=== PATIENT | male | born 1950 | race Caucasian/White ===

== ENCOUNTER → 2016-06-05 | Outpatient (CLI) | payer MEDICARE, OTHER ==
[~2016-06-05] MED LIST: ALBU8.5H INH; AMLO5TAB2 PO; ATOR10TA64 PO; DOXA2TAB2 PO; DOXA4TAB2 PO; LISI1TAB9 PO; METO-277 PO
--- NOTE | 2016-06-05 09:16 | DI ---
Indication: ITS.REASON: C64.2 Malignant neoplasm of left kidney, except renal pelvis PROCEDURE: US RENAL: Encounter: Subsequent Comparison: Renal ultrasound dated October 25, [address] dated November 20, 2014 Technique: Grayscale and color Doppler sonographic imaging of both kidneys was performed. FINDINGS: Left kidney is surgically absent. No mass in the left nephrectomy bed. No evidence for collecting system dilatation, contour deforming mass, nephrolithiasis, or abnormal perinephric fluid collection. The right kidney measures 12.4 cm in length. IMPRESSION: Stable normal appearance of the right kidney. .
== END ==
LOC: IMA 08:05
PROVIDERS: ATTEND Specialist
DX: C64.2 Malignant neoplasm of left kidney, except renal pelvis (principal)

== ENCOUNTER 2017-07-02 14:03 | Observation (INO) ==
--- OUTSIDE RECORDS SUMMARY | 2017-07-02 14:31 | External Medical Summary | Continuity of Care Document ---
:1950 Author Organization Via [facility] Allergies Active Description Code Type Severity Reaction Onset Reported/ Identified Relationship Clinical to Patient Status Yes ADVIL 10425 Drug N/A N/A 16175 Aller 2 gy Yes PENICILLIN Drug N/A N/A Aller gy Yes Lecithin soy Aller Unknown N/A 06/06/2010 gy Yes naproxen Aller M SWELLING, 06/06/2010 gy RASH Yes Penicillins Penic Aller Unknown N/A 06/06/2010 illin gy s Yes Salicylates napro Aller M SWELLING, 06/06/2010 xen gy RASH Yes soy Aller Unknown N/A 06/06/2010 gy Yes ibuprofen NKMA N/A N/A 07/17/2013 Yes penicillin NKMA N/A N/A 07/17/2013 Yes ibuprofen NKMA N/A N/A 08/17/2016 Yes penicillin NKMA N/A N/A 08/17/2016 Medications Medication Packaging Start Stop Route Dosage Sig Date Date 2 puffs Inhalation 2 budesonide-formo 4 puffs, terol(Symbicort Inhalation, BID, 160 mcg-4.5 6 g, 0 Refill(s) mcg/inh inhalation aerosol) 1 tabs 10/14/19 Oral 20 mg 20 omeprazole(omepr 4 17 mg=1 tabs, Oral, azole 20 mg oral Daily, 0 delayed release Refill(s) tablet) 2 tabs Oral 2 lisinopril-hydro 4 tabs, Oral, CHLOROthiazide(l Daily, 90 tabs, isinopril-hydroc 0 Refill(s) hlorothiazide 10 mg-12.5 mg oral tablet) 1 tabs 05/13/19 Oral 20 mg 1 nebivolol(Bystol 4 15 tabs, Oral, ic 20 mg oral Daily tablet) 1 tabs 03/09/20 Oral 5 mg 1 amLODIPine(amLOD 4 14 tabs, Oral, IPine 5 mg oral Daily, 90 tabs tablet) 1 tabs Oral 10 mg 10 atorvastatin(abisai 4 mg=1 tabs, Oral, rvastatin 10 mg Daily, 90 tabs, oral tablet) 0 Refill(s) 1 tabs Oral 2 mg 2 doxazosin(doxazo 4 mg=1 tabs, Oral, sin 2 mg oral Daily, 90 tabs, tablet) 0 Refill(s) 2 puffs 02/03/20 Inhalation 2 albuterol(Ventol 4 14 puffs, in HFA 90 Inhalation, QID, mcg/inh 8 g, PRN: as inhalation needed for aerosol) wheezing 2 tabs 09/30/19 Oral 20 mg 20 nebivolol(Bystol 5 17 mg=2 tabs, Oral, ic 10 mg oral Daily, 60 tabs, tablet) 0 Refill(s) ORAL [id number] 5 daily 1,000 mL 12/04/19 IV 20 Lactated Ringers 5 15 mL/hr, IV Injection(Lactat ed Ringers Injection 1,000 mL) 1 tabs 12/05/19 Oral 10 mg 10 atorvastatin(abisai 5 15 mg=1 tabs, Oral, rvastatin) Bedtime (once a day) 1 tabs 12/05/19 Oral 5 mg 5 amLODIPine(Norva 5 15 mg=1 tabs, Oral, sc) Daily 2 puffs 12/05/19 Inhalation 2 budesonide-formo 5 15 puffs, terol(Symbicort Inhalation, BID 160 mcg-4.5 mcg/inh inhalation aerosol) 2 tabs 12/05/19 Oral 20 mg 20 nebivolol(Bystol 5 15 mg=2 tabs, Oral, ic) Daily 2 tabs 12/05/19 Oral 2 lisinopril-hydro 5 15 tabs, Oral, chlorothiazide(l Daily isinopril-hydroc hlorothiazide 10 mg-12.5 mg oral tablet) 1 tabs 12/05/19 Oral 40 mg 40 pantoprazole(Pro 5 15 mg=1 tabs, Oral, tonix) Daily 1 tabs 12/05/19 Oral 81 mg 81 aspirin(aspirin) 5 15 mg=1 tabs, Oral, Daily 2 mL 12/05/19 IV Push 10 mg 10 metoclopramide(R 5 15 mg=2 mL, IV eglan) Push, q6hr, PRN: Nausea or Vomiting 2 tabs 12/05/19 Oral 2 HYDROcodone-acet 5 15 tabs, Oral, aminophen([place] q4hr, PRN: Pain 7.5 mg-325 mg Moderate (4-6) oral tablet) 2 mL 12/05/19 IV Push 4 mg 4 morphine(morphin 5 15 mg=2 mL, IV e) Push, q1hr, PRN: Pain Severe (7-10) 2 tabs 12/05/19 Oral 650 mg 650 acetaminophen(ac 5 15 mg=2 tabs, Oral, etaminophen) q4hr, PRN: Pain Mild (1-3) 0.5 mL 12/04/19 NEB 2.5 mg 2.5 albuterol(albute 5 15 mg=0.5 mL, NEB, rol 5 mg/mL Once (0.5%) inhalation solution) 1 tabs 10/14/19 Oral 10 mg 10 amLODIPine(amLOD 7 17 mg=1 tabs, Oral, IPine 10 mg oral Daily, 0 tablet) Refill(s) 1 drops Eye-Both 1 cycloSPORINE 7 drops, Eye-Both, ophthalmic(Resta q12hr, 0 sis) Refill(s) 125 mcg 125 levothyroxine(le 7 mcg, Daily, 0 vothyroxine) Refill(s) 10/13/19 See multivitamin 7 17 Instructions, with Oral Daily, 0 minerals(PreserV Refill(s) ision) 1 tabs 10/14/19 Oral 200 mg 200 labetalol(labeta 7 17 mg=1 tabs, Oral, lol 200 mg oral BID, 0 Refill(s) tablet) 1,000 mL 10/13/19 IV 20 Lactated Ringers 7 17 mL/hr, IV Injection(Lactat ed Ringers Injection 1,000 mL) 1 tabs 10/14/19 Oral 10 mg 10 amLODIPine(amLOD 7 17 mg=1 tabs, Oral, IPine) Daily 2 puffs 10/13/19 Inhalation 180 mcg 180 albuterol(albute 7 17 mcg=2 puffs, rol CFC free 90 Inhalation, mcg/inh q4hr, PRN: inhalation Bronchospasms aerosol) 1 tabs 10/14/19 Oral 81 mg 81 aspirin(aspirin) 7 17 mg=1 tabs, Oral, Daily 2 tabs 10/14/19 Oral 200 mg 200 labetalol(labeta 7 17 mg=2 tabs, Oral, lol) BID 1 tabs 10/14/19 Oral 40 mg 40 pantoprazole(Pro 7 17 mg=1 tabs, Oral, tonix) Daily 2 puffs 10/13/19 Inhalation 2 budesonide-formo 7 17 puffs, terol(Symbicort Inhalation, BID 160 mcg-4.5 mcg/inh inhalation aerosol) 2 mL 10/14/19 IV Push 10 mg 10 metoclopramide(R 7 17 mg=2 mL, IV eglan) Push, q6hr, PRN: Nausea or Vomiting 1 tabs 10/14/19 Oral 1 HYDROcodone-acet 7 17 tabs, Oral, aminophen([place] q4hr, PRN: Pain 7.5 mg-325 mg Moderate (4-6) oral tablet) 1 mL 10/14/19 IV Push 0.4 mg 0.4 nalOXone(Narcan) 7 17 mg=1 mL, IV Push, Once, PRN: Sedation 2 mL 10/14/19 IV Push 4 mg 4 morphine(morphin 7 17 mg=2 mL, IV e) Push, q1hr, PRN: Pain Severe (7-10) 2 puffs 10/14/19 Inhalation 2 fluticasone-salm 7 17 puffs, eterol(Advair Inhalation, BID HFA 115 mcg-21 mcg/inh inhalation aerosol) Problems Date Dx Attending Type Code Diagnosis Diagnosed By Coded 12/09/2014 Oskar, Reason 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 12/09/2014 Oskar, Final 250.00 Diabetes mellitus Arik Chavez without mention of complication, type II or unspecified t 12/09/2014 Oskar, Final 403.90 Hypertensive Arik Chavez chronic kidney disease, unspecified, with chronic kidney disea 12/09/2014 Oskar, Final 493.20 Chronic Arik Chavez obstructive asthma, unspecified 12/09/2014 Oskar, Final 585.2 Chronic kidney Arik Chavez disease, Stage II (mild) 12/09/2014 Oskar, Final 599.71 Gross hematuria Arik Chavez 12/09/2014 Oskar, Final 600.00 Hypertrophy Arik Chavez (benign) of prostate without urinary obstruction and other lowe 12/09/2014 Oskar, Final V10.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 11/30/2015 Oskar, Final Z85.51 Personal history Arik Chavez of malignant neoplasm of bladder 05/03/2016 Oskar, Final Z85.51 Personal history Arik Chavez of malignant neoplasm of bladder 08/29/2016 SANTOSH ARAUZ DO K06.8 Other specified C disorders of gingiva and edentulous alveolar ridge 08/29/2016 SANTOSH ARAUZ DO K08.89 Other specified C disorders of teeth and supporting structures 08/29/2016 SANTOSH ARAUZ DO Z98.818 Other dental C procedure status 08/29/2016 K06.8 Other specified SANTOSH ARAUZ DO disorders of C gingiva and edentulous alveolar ridge 08/29/2016 K08.89 Other specified SANTOSH ARAUZ DO disorders of teeth C and supporting structures 08/29/2016 Z98.818 Other dental SANTOSH ARAUZ DO procedure status C 09/29/2016 Oskar, Final Z85.51 Personal history Arik Chavez of malignant neoplasm of bladder 10/16/2016 Oskar, Final C67.8 Malignant neoplasm Arik Chavez of overlapping sites of bladder 10/16/2016 Oskar, Final 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 10/16/2016 Oskar, Reason 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 10/16/2016 Oskar, Final E03.9 Hypothyroidism, Arik Chavez unspecified 10/16/2016 Oskar, Final 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 10/16/2016 Oskar, Final E78.5 Hyperlipidemia, Arik Chavez unspecified 10/16/2016 Oskar, Final I12.9 Hypertensive Arik Chavez chronic kidney disease with stage 1 through stage 4 chronic ki 10/16/2016 Oskar, Final K21.9 Gastro-esophageal Arik Chavez reflux disease without esophagitis 10/16/2016 Oskar, Final N18.2 Chronic kidney Arik Chavez disease, stage 2 (mild) 10/16/2016 Oskar, Final N40.0 Benign prostatic Arik Chavez hyperplasia without lower urinary tract symptoms 10/16/2016 Oskar, Final 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.82 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 10/16/2016 Oskar, Final Z79.84 senior care Arik Chavez (current) use of oral hypoglycemic drugs 10/16/2016 Oskar, Final Z79.899 Other longterm Arik Chavez (current) drug therapy 10/16/2016 Oskar, Final Z85.51 Personal history Arik Chavez of malignant neoplasm of bladder 10/16/2016 Oskar, Final Z85.528 Personal history Arik Chavez of other malignant neoplasm of kidney 10/16/2016 Oskar, Final Z87.440 Personal history Arik Chavez of urinary (tract) infections 10/16/2016 Oskar, Final Z87.891 Personal history Arik Chavez of nicotine dependence 10/16/2016 Oskar, Final Z90.5 Acquired absence Arik Chavez of kidney 10/23/2016 River Castellanos Final C67.9 Malignant neoplasm B of bladder, unspecified 01/25/2017 River Castellanos Final C67.9 Malignant neoplasm B of bladder, unspecified 04/26/2017 River Castellanos Final 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 92607 Urinalysis, by 11/30/2015 dip stick or tablet reagent for bilirubin, glucose, hemoglobin, ketones, leukocytes, nitrite, pH, protein, specific gravity, urobilinogen, any number of these constituents; [place] w [id number] 05/03/2016 Cystourethroscopy (separate procedure).. 33462 Urinalysis, by 05/03/2016 dip stick or tablet reagent for bilirubin, glucose, hemoglobin, ketones, leukocytes, nitrite, pH, protein, specific gravity, urobilinogen, any number of these [place]; [place] w [id number] 09/29/2016 Cystourethroscopy (separate procedure).. 41565 Urinalysis, by 09/29/2016 dip stick or tablet reagent for bilirubin, glucose, hemoglobin, ketones, leukocytes, nitrite, pH, protein, specific gravity, urobilinogen, any number of these constituents; [place] w [address] 10/12/2016 Cystourethroscopy, with fulguration (including cryosurgery or laser surgery 85634 Office or other 10/23/2016 outpatient visit for the evaluation and management of an established patient, which requires at least 2 of these 3 cronin components: A detailed history; A detailed examination; Medical d 10314 01/25/2017 Cystourethroscopy (separate procedure).. 13064 Urinalysis, by 01/25/2017 dip stick or tablet reagent for bilirubin, glucose, hemoglobin, ketones, leukocytes, nitrite, pH, protein, specific gravity, urobilinogen, any number of these constituents; [place] w [address] Office or other 01/25/2017 outpatient visit for the evaluation and management of an established patient, which requires at least 2 of these 3 cronin components: An expanded problem focused history; An expanded prob 78747 Cytopathology, 04/27/2017 selective cellular enhancement technique with interpretation (eg, liquid based slide preparation method), except cervical or vaginal.. Results Test Result Range CBC With Platelet No Differential - 10/12/16 05:26 HCT 39.8 % 42.0-52.0 HGB 13.7 g/dL 14.0-18.0 MCH 29.2 pg 27.0-32.0 MCHC 34.4 g/dL 32.0-36.0 MCV 84.9 fL 82.0-99.0 MPV 10.7 fL 9.4-12.3 Platelet Count 247 K/uL 150-400 RBC 4.69 10*6/uL 4.60-6.20 RDW 15.1 % 11.5-14.5 WBC 8.0 K/uL 4.8-10.8 Comprehensive Metabolic Panel (CMP) - 10/12/16 05:26 Albumin 3.8 g/dL 3.5-4.8 Alkaline Phosphatase 145 U/L 26-104 ALT (SGPT) 37 U/L 17-63 Anion Gap 8 mEq/L 3-20 AST (SGOT) 27 U/L 15-41 Bilirubin Total 0.6 mg/dL 0.2-1.2 BUN 21 mg/dL 4-20 Calcium 8.8 mg/dL 8.6-10.0 Chloride 104 mEq/L 99-109 CO2 22 mEq/L 22-32 Creatinine 1.74 mg/dL 0.64-1.27 Globulin 2.8 g/dL 1.9-4.3 Glucose 104 mg/dL 70-100 Potassium 4.0 mEq/L 3.6-5.1 Protein 6.6 g/dL 6.1-7.9 Sodium 134 mEq/L 136-144 eGFR - 10/12/16 05:26 eGFR 39 mL/min >60 CBC With Platelet No Differential - 10/12/16 05:26 HCT 39.8 % 42.0-52.0 HGB 13.7 g/dL 14.0-18.0 MCH 29.2 pg 27.0-32.0 MCHC 34.4 g/dL 32.0-36.0 MCV 84.9 fL 82.0-99.0 MPV 10.7 fL 9.4-12.3 Platelet Count 247 K/uL 150-400 RBC 4.69 10*6/uL 4.60-6.20 RDW 15.1 % 11.5-14.5 WBC 8.0 K/uL 4.8-10.8 Comprehensive Metabolic Panel (CMP) - 10/12/16 05:26 Albumin 3.8 g/dL 3.5-4.8 Alkaline Phosphatase 145 U/L 26-104 ALT (SGPT) 37 U/L 17-63 Anion Gap 8 mEq/L 3-20 AST (SGOT) 27 U/L 15-41 Bilirubin Total 0.6 mg/dL 0.2-1.2 BUN 21 mg/dL 4-20 Calcium 8.8 mg/dL 8.6-10.0 Chloride 104 mEq/L 99-109 CO2 22 mEq/L 22-32 Creatinine 1.74 mg/dL 0.64-1.27 Globulin 2.8 g/dL 1.9-4.3 Glucose 104 mg/dL 70-100 Potassium 4.0 mEq/L 3.6-5.1 Protein 6.6 g/dL 6.1-7.9 Sodium 134 mEq/L 136-144 eGFR - 10/12/16 05:26 eGFR 39 mL/min >60 Glucose NPT - 10/12/16 05:33 Glucose NPT 101 mg/dL 70-100 Glucose NPT - 10/12/16 05:33 Glucose NPT 101 mg/dL 70-100 Glucose NPT - 10/12/16 07:54 Glucose NPT 98 mg/dL 70-100 Glucose NPT - 10/12/16 07:54 Glucose NPT 98 mg/dL 70-100 Encounters ACCT No. Visit Discharge Status Pt. Type Provider Facility Loc./Unit Complaint Date/Time [id number] 01/10/2013 01/10/2013 CLS Outpatient 09:38:00 23:59:59 [id number] 10/12/2016 10/13/2016 DIS Outpatient Oskar Via [facility] J7W urethral 67 05:06:00 09:35:00 , [facility] on Avni [id number] 12/03/2014 12/04/2014 DIS Outpatient Oskar Via [facility] J5W tumor of 45 05:13:00 10:38:00 , [facility] on Avni [id number] 10/13/2016 Document 1712 05:17:12 Registrati on [id number] 09/30/2016 Document 1541 05:15:41 Registrati on [id number] 01/06/2015 Document 5057 13:50:57 Registrati on [id number] 01/06/2015 Document 2128 11:21:28 Registrati on [id number] 01/06/2015 Document 4441 10:44:41 Registrati on [id number] 01/06/2015 Document 2135 10:21:35 Registrati on [id number] 10/23/2014 10/23/2014 DIS Outpatient [id number] 11:32:52 11:32:55 52 [id number] 10/22/2014 10/22/2014 CLS Outpatient [id number] 10:10:00 23:59:59 00 [id number] 10/22/2014 10/22/2014 CLS Outpatient [id number] 09:01:55 23:59:59 55 [id number] 10/22/2014 10/22/2014 DIS Outpatient [id number] 10:58:51 10:58:52 51 [id number] 10/22/2014 10/22/2014 DIS Outpatient [id number] 08:47:36 08:47:36 36 [id number] 10/20/2014 10/20/2014 CLS Outpatient [id number] 08:32:53 23:59:59 53 [id number] 10/13/2014 10/13/2014 CLS Outpatient [id number] 10:36:52 23:59:59 52 [id number] 10/13/2014 10/13/2014 CLS Outpatient [id number] 10:35:56 23:59:59 56 [id number] 10/13/2014 10/13/2014 DIS Outpatient [id number] 10:36:54 10:36:55 54 [id number] 07/08/2014 07/08/2014 DIS Outpatient [id number] 13:07:42 13:07:42 42 [id number] 07/08/2014 07/08/2014 DIS Outpatient [id number] 10:30:10 10:30:11 10 [id number] 07/06/2014 07/06/2014 CLS Outpatient [id number] 12:50:07 23:59:59 07 [id number] 07/06/2014 07/06/2014 CLS Outpatient [id number] 12:29:55 23:59:59 55 [id number] 07/06/2014 07/06/2014 CLS Outpatient [id number] 11:13:40 23:59:59 40 [id number] 07/06/2014 07/06/2014 CLS Outpatient [id number] 10:20:24 23:59:59 24 [id number] 07/06/2014 07/06/2014 CLS Outpatient [id number] 10:19:04 23:59:59 04 [id number] 07/06/2014 07/06/2014 DIS Outpatient [id number] 13:06:41 13:06:41 41 [id number] 07/06/2014 07/06/2014 DIS Outpatient [id number] 12:50:06 12:50:06 06 [id number] 07/06/2014 07/06/2014 DIS Outpatient [id number] 12:50:04 12:50:05 04 [id number] 07/06/2014 07/06/2014 DIS Outpatient [id number] 12:50:01 12:50:02 01 [id number] 07/06/2014 07/06/2014 DIS Outpatient [id number] 12:16:17 12:16:19 17 [id number] 07/06/2014 07/06/2014 DIS Outpatient [id number] 10:22:05 10:22:05 05 [id number] 07/06/2014 07/06/2014 DIS Outpatient [id number] 10:21:38 10:21:41 38 [id number] 07/06/2014 07/06/2014 DIS Outpatient [id number] 10:20:53 10:20:57 53 [id number] 07/06/2014 07/06/2014 DIS Outpatient [id number] 10:20:09 10:20:13 09 [id number] 07/06/2014 07/06/2014 DIS Outpatient [id number] 10:19:19 10:19:22 19 [id number] 04/27/2014 04/27/2014 CLS Outpatient [id number] 14:13:27 23:59:59 27 [id number] 04/27/2014 04/27/2014 DIS Outpatient [id number] 14:18:48 14:18:48 48 [id number] 04/27/2014 04/27/2014 DIS Outpatient [id number] 14:13:26 14:13:26 26 [id number] 10/23/2014 Document [id number] 11:13:26 Registrati 26 on [id number] 10/22/2014 Document [id number] 16:16:10 Registrati 10 on [id number] 10/22/2014 Document [id number] 13:51:29 Registrati 29 on [id number] 10/22/2014 Document [id number] 08:58:00 Registrati on [id number] 10/22/2014 Document 5727 08:57:27 Registrati on [id number] 07/06/2014 Document 0501 12:05:01 Registrati on [id number] 07/06/2014 Document 0448 12:04:48 Registrati on [id number] 07/06/2014 Document 0430 12:04:30 Registrati on [id number] 07/06/2014 Document 0427 12:04:27 Registrati on [id number] 07/06/2014 Document 0424 12:04:24 Registrati on [id number] 07/06/2014 Document 0421 12:04:21 Registrati on [id number] 07/06/2014 Document 0417 12:04:17 Registrati on [id number] 07/06/2014 Document 0412 12:04:12 Registrati on [id number] 07/06/2014 Document 0404 12:04:04 Registrati on [id number] 07/06/2014 Document 0401 12:04:01 Registrati on [id number] 07/06/2014 Document 0356 12:03:56 Registrati on [id number] 07/06/2014 Document 0351 12:03:51 Registrati on [id number] 07/06/2014 Document 0346 12:03:46 Registrati on [id number] 07/06/2014 Document 0224 12:02:24 Registrati on [id number] 07/06/2014 Document 5913 11:59:13 Registrati on [id number] 07/06/2014 Document 5904 11:59:04 Registrati on [id number] 07/06/2014 Document 5838 11:58:38 Registrati on [id number] 07/06/2014 Document 5727 11:57:27 Registrati on [id number] 07/06/2014 Document [id number] 11:02:00 Registrati on [id number] 07/06/2014 Document [id number] 11:01:00 Registrati on [id number] 08/29/2016 08/29/2016 DIS Emergency ARAPAHOE DO, ED 14 19:53:00 21:15:00 SANTOSH Torres [id number] 06/05/2016 06/05/2016 CLS Outpatient JEFFREY Ball BARBARA 50 08:05:00 23:59:59 MD [facility] [id number] 08/29/2016 Document 75 19:53:00 Registrati on [id number] 08/10/2015 Document 83 11:01:00 Registrati on [id number] 10/12/2016 10/13/2016 DIS Outpatient Oskar Via [facility] J7W urethral 65 05:06:00 09:35:00 , [facility] on [address] [id number] 12/03/2014 12/04/2014 DIS Outpatient Oskar Via [facility] J5W tumor of 45 05:13:00 10:38:00 , [facility] on [place] [id number] 10/13/2016 Document 1712 05:17:12 Registrati on [id number] 09/30/2016 Document 1541 05:15:41 Registrati on [id number] 01/06/2015 Document 5057 13:50:57 Registrati on [id number] 01/06/2015 Document 2128 11:21:28 Registrati on [id number] 01/06/2015 Document 4441 10:44:41 Registrati on [id number] 01/06/2015 Document 2135 10:21:35 Registrati on [id number] 10/23/2014 10/23/2014 DIS Outpatient [id number] 11:32:52 11:32:55 52 [id number] 10/22/2014 10/22/2014 CLS Outpatient [id number] 10:10:00 23:59:59 00 [id number] 10/22/2014 10/22/2014 CLS Outpatient [id number] 09:01:55 23:59:59 55 [id number] 10/22/2014 10/22/2014 DIS Outpatient [id number] 10:58:51 10:58:52 51 [id number] 10/22/2014 10/22/2014 DIS Outpatient [id number] 08:47:36 08:47:36 36 [id number] 10/20/2014 10/20/2014 CLS Outpatient [id number] 08:32:53 23:59:59 53 [id number] 10/13/2014 10/13/2014 CLS Outpatient [id number] 10:36:52 23:59:59 52 [id number] 10/13/2014 10/13/2014 CLS Outpatient [id number] 10:35:56 23:59:59 56 [id number] 10/13/2014 10/13/2014 DIS Outpatient [id number] 10:36:54 10:36:55 54 [id number] 07/08/2014 07/08/2014 DIS Outpatient [id number] 13:07:42 13:07:42 42 [id number] 07/08/2014 07/08/2014 DIS Outpatient [id number] 10:30:10 10:30:11 10 [id number] 07/06/2014 07/06/2014 CLS Outpatient [id number] 12:50:07 23:59:59 07 [id number] 07/06/2014 07/06/2014 CLS Outpatient [id number] 12:29:55 23:59:59 55 [id number] 07/06/2014 07/06/2014 CLS Outpatient [id number] 11:13:40 23:59:59 40 [id number] 07/06/2014 07/06/2014 CLS Outpatient [id number] 10:20:24 23:59:59 24 [id number] 07/06/2014 07/06/2014 CLS Outpatient [id number] 10:19:04 23:59:59 04 [id number] 07/06/2014 07/06/2014 DIS Outpatient [id number] 13:06:41 13:06:41 41 [id number] 07/06/2014 07/06/2014 DIS Outpatient [id number] 12:50:06 12:50:06 06 [id number] 07/06/2014 07/06/2014 DIS Outpatient [id number] 12:50:04 12:50:05 04 [id number] 07/06/2014 07/06/2014 DIS Outpatient [id number] 12:50:01 12:50:02 01 [id number] 07/06/2014 07/06/2014 DIS Outpatient [id number] 12:16:17 12:16:19 17 [id number] 07/06/2014 07/06/2014 DIS Outpatient [id number] 10:22:05 10:22:05 05 [id number] 07/06/2014 07/06/2014 DIS Outpatient [id number] 10:21:38 10:21:41 38 [id number] 07/06/2014 07/06/2014 DIS Outpatient [id number] 10:20:53 10:20:57 53 [id number] 07/06/2014 07/06/2014 DIS Outpatient [id number] 10:20:09 10:20:13 09 [id number] 07/06/2014 07/06/2014 DIS Outpatient [id number] 10:19:19 10:19:22 19 [id number] 04/27/2014 04/27/2014 CLS Outpatient [id number] 14:13:27 23:59:59 27 [id number] 04/27/2014 04/27/2014 DIS Outpatient [id number] 14:18:48 14:18:48 48 [id number] 04/27/2014 04/27/2014 DIS Outpatient [id number] 14:13:26 14:13:26 26 [id number] 10/23/2014 Document [id number] 11:13:26 Registrati 26 on [id number] 10/22/2014 Document [id number] 16:16:10 Registrati 10 on [id number] 10/22/2014 Document [id number] 13:51:29 Registrati 29 on [id number] 10/22/2014 Document [id number] 08:58:00 Registrati on [id number] 10/22/2014 Document 5727 08:57:27 Registrati on [id number] 07/06/2014 Document 0501 12:05:01 Registrati on [id number] 07/06/2014 Document 0448 12:04:48 Registrati on [id number] 07/06/2014 Document 0430 12:04:30 Registrati on [id number] 07/06/2014 Document 0427 12:04:27 Registrati on [id number] 07/06/2014 Document 0424 12:04:24 Registrati on [id number] 07/06/2014 Document 0421 12:04:21 Registrati on [id number] 07/06/2014 Document 0417 12:04:17 Registrati on [id number] 07/06/2014 Document 0412 12:04:12 Registrati on [id number] 07/06/2014 Document 0404 12:04:04 Registrati on [id number] 07/06/2014 Document 0401 12:04:01 Registrati on [id number] 07/06/2014 Document 0356 12:03:56 Registrati on [id number] 07/06/2014 Document 0351 12:03:51 Registrati on [id number] 07/06/2014 Document 0346 12:03:46 Registrati on [id number] 07/06/2014 Document 0224 12:02:24 Registrati on [id number] 07/06/2014 Document 5913 11:59:13 Registrati on [id number] 07/06/2014 Document 5904 11:59:04 Registrati on [id number] 07/06/2014 Document 5838 11:58:38 Registrati on [id number] 07/06/2014 Document 5727 11:57:27 Registrati on [id number] 07/06/2014 Document [id number] 11:02:00 Registrati on [id number] 07/06/2014 Document [id number] 11:01:00 Registrati on [id number] 04/27/2017 04/27/2017 DIS Outpatient Parham, [facility] PATHOLOGY 92 12:45:00 23:59:00 Ivy Enamorado [facility] [id number] 04/26/2017 04/26/2017 DIS Outpatient Jasmin, [facility] 3 MO CYSTO 01 10:19:00 23:59:00 [facility] [id number] 01/26/2017 01/26/2017 DIS Outpatient Parham, [facility] pathology 92 00:01:00 23:59:00 Ivy Enamorado [facility] [id number] 01/25/2017 01/25/2017 DIS Outpatient Jasmin, [facility] 3 MO CYSTO 37 10:06:00 23:59:00 [facility] [id number] 10/23/2016 10/23/2016 DIS Outpatient Jasmin, [facility] Bladder 78 13:34:00 23:59:00 [facility] [id number] 09/29/2016 09/29/2016 DIS Outpatient Oskar [facility] 6 MO CYSTO 15 12:31:00 23:59:00 [facility] [id number] 05/03/2016 05/03/2016 DIS Outpatient Oskar [facility] 6 MO CYSTO 51 13:19:00 23:59:00 , [facility] [id number] 11/30/2015 11/30/2015 DIS Outpatient Oskar [facility] CYSTO 45 13:28:00 23:59:00 , [facility] [id number] 07/01/2015 07/01/2015 DIS Outpatient Oskar [facility] 4 MO CYSTO 03 13:02:00 23:59:00 , [facility] [id number] 03/26/2015 03/26/2015 CLS Outpatient Oskar [facility] CYSTO 34 13:06:00 23:59:59 , [facility] [id number] 01/08/2015 01/08/2015 DIS Outpatient Oskar [facility] FOLLOW UP 88 12:49:00 23:59:00 , [facility] [id number] 11/26/2014 11/26/2014 DIS Outpatient Oskar [facility] SOV/BLOOD 29 13:13:00 23:59:00 , Arik [facility] [id number] 10/12/2016 Document 67 05:06:00 Registrati on [id number] 01/10/2013 01/10/2013 CLS Outpatient 09:38:00 23:59:59 [id number] 04/27/2017 04/27/2017 DIS Outpatient [facility], [facility] PATHOLOGY 92 12:45:00 23:59:[address] [facility] [id number] 04/26/2017 04/26/2017 DIS Outpatient Jasmin, [facility] 3 MO CYSTO 01 10:19:00 23:59:00 River Jhaverii [facility] [id number] 01/26/2017 01/26/2017 [facility] Outpatient [facility], [facility] Lab pathology 92 00:01:00 23:59:[address] [facility] [id number] 01/25/2017 01/25/2017 DIS Outpatient Jasmin, [facility] Mur 3 MO CYSTO 37 10:06:00 23:59:00 [facility] [id number] 10/23/2016 10/23/2016 DIS Outpatient Jasmin, [facility] Bladder 78 13:34:00 23:59:00 [facility] [id number] 09/29/2016 09/29/2016 DIS Outpatient Oskar [facility] 6 MO CYSTO 15 12:31:00 23:59:00 , [facility] [id number] 05/03/2016 05/03/2016 DIS Outpatient Oskar [facility] 6 MO CYSTO 51 13:19:00 23:59:00 , [facility]k [facility] [id number] 11/30/2015 11/30/2015 DIS Outpatient Oskar [facility] CYSTO 45 13:28:00 23:59:00 , [facility]k [facility] [id number] 07/01/2015 07/01/2015 DIS Outpatient Oskar [facility] 4 MO CYSTO 03 13:02:00 23:59:00 , Arik [facility] [id number] 03/26/2015 03/26/2015 CLS Outpatient Oskar [facility] CYSTO 34 13:06:00 23:59:59 , Arik [facility] [id number] 01/08/2015 01/08/2015 DIS Outpatient Oskar [facility] FOLLOW UP 88 12:49:00 23:59:00 , [facility]k [facility] [id number] 11/26/2014 11/26/2014 DIS Outpatient Oskar [facility] SOV/BLOOD 29 13:13:00 23:59:00 , Arik [facility] [id number] 10/12/2016 Document 67 05:06:00 Registrati on
[2017-07-02 14:36] VITALS: BMI 33.5
--- NOTE | 2017-07-02 15:41 | History & Physical Report ---
History of Present Illness Date: 07/02/17 Chief complaint: Sharp abdominal pain HPI: Doroteo Gaitan is a 66 year old who developed sudden onset of sharp and stabbing epigastric pain at 1730 on 07/01/17 while eating supper (his notes that the pain started while eating a chilli dog - but he added that the chili was turkey chili). He has never experienced this type of pain before. He denied any n/v/d/c or bloody stools. His appetite has been stable. He denies any known exposures to contaminated food. He occasionally has reflux symptoms but not recently. He has not had fever, chills, or sweating. He denies any dizziness, lightheadedness or weakness. He's recently been exacerbating a flare up of his allergic and asthmatic symptoms with the strong winds. He has not had any recent alcohol intake. Mr. Gaitan saw Dr. Gatica on 07/02/17, and had labs, UA, and gall bladder ultrasound done at [facility] [place]. LFTs were normal (though patient stated that LFTs are often mildly elevated), lipase was high at 569. Creatinine , at 1.6, was a little above his baseline of 1.5. CBC was unremarkable. Troponin was negative. UA was also negative for UTI or hematuria. Ultrasound showed that the gall bladder wall was upper limits of normal, otherwise was negative. With his abdominal pain and pancreatitis, Mr. Gaitan was admitted to observation status under the hospitalist service. Review of Systems All systems PM: 10-point ROS was reviewed, no additional remarkable complaints except - Constitutional Constitutional: Present: as per HPI - EENMT Eyes: Absent: change in vision Balance: Absent: vertigo Nose: Present: allergies Mouth/Throat: Absent: sore throat - Cardiovascular Cardiovascular: Absent: chest pain Vascular: Absent: pedal edema - Respiratory Respiratory: Absent: cough - Gastrointestinal Gastrointestinal: Present: abdominal pain, dyspepsia. Absent: constipation, diarrhea, dysphagia, nausea, vomiting - Genitourinary Genitourinary: Absent: dysuria - Musculoskeletal Musculoskeletal: Present: back pain (rare) Musculoskeletal Comments: "phantom" pains to his back where he had his left kidney removed - Integumentary/Breasts Integumentary: Absent: rash, wounds - Neurological Neurological: Present: numbness (occasional left leg numbness - attributes to a stroke a few years ago). Absent: abnormal gait, confusion, dizziness, frequent falls, weakness - Psychiatric Psychiatric: Absent: depression - Endocrine Endocrine: Absent: palpitations - Hematologic/Lymphatic Hematologic/Lymphatic: Absent: easy bruising - Allergic/Immunologic Allergic/Immunologic: Present: seasonal rhinorrhea Past Medical History Medical History Updates: Stroke 2013. HTN. Hyperlipidemia. CKD, stage III. Asthma and allergies. COPD (mild). Hypothyroid. Renal carcinoma, resolved with nephrectomy. Hypogonadism. Obesity BMI >30 Surgical History: Colonoscopy 07/15/[address] Gatica: 1 tubular adenoma with low grade dysplasia. Cystoscopies q 3 months with occasional removal of precancerous growths (Dr. Murray) - last 04/26/17. Left nephrectomy (age 56). TURP (age 56). Left acoustic neuroma (age 43). tonsillectomy (age 7) Family History Updates: Mother: HTN, hyperlipidemia, DM2, obesity. Father: Unknown. Older Sister: GB disease and liver problems. 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 Salgado (last seen in May 2017) Urologist: Dr. Murray Medications Home Medications Medication Instructions Recorded Confirmed Type Albuterol HFA Inhaler [Ventolin 2 puff ORAL INH O PRN 08/29/16 07/02/17 History Hfa 90 mcg/actuation] Amlodipine Besylate [Norvasc] 10 mg PO DAILY 07/02/17 07/02/17 History Aspirin [Joellen Chewable Aspirin] 1 tab PO DAILY 07/02/17 07/02/17 History Atorvastatin [Lipitor] 1 tab PO HS 07/02/17 07/02/17 History Budesonide/Formoterol Fumarate 2 puff INH BID 07/02/17 07/02/17 History [Symbicort 160-4.5 Mcg Inhaler] Doxazosin [Cardura] 1 tab PO HS 07/02/17 07/02/17 History Labetalol HCl 1 tab PO BID 07/02/17 07/02/17 History Levothyroxine Tab [Synthroid] 1 tab PO DAILY 07/02/17 07/02/17 History Lisinopril/Hctz 1012.5 [Prinzide 1 tab PO BID 07/02/17 07/02/17 History 10.5] TESTOSTERONE 100MG/ML (10 mL) IM 07/02/17 History Vit C/E/Zn/Coppr/Lutein/Zeaxan 1 tab PO BID 07/02/17 07/02/17 History [Preservision Areds 2 Softgel] Allergies Allergy/AdvReac Type Severity Reaction Status Date / Time naproxen Allergy Mild SWELLING,RA Verified 07/02/17 15:03 SH Penicillins Allergy Unknown Verified 07/02/17 15:03 soy Allergy Unknown Verified 07/02/17 15:03 Exam Vital Signs: Temperature 96.7 F L 07/02/17 15:06 Pulse Rate 57 L 07/02/17 15:06 Respiratory Rate 14 07/02/17 15:06 Blood Pressure 148/69 H 07/02/17 15:06 Pulse Oximetry 98 07/02/17 15:06 Height/Weight/BMI: Height 1.7 m Weight 97.3 kg Body Mass Index 33.5 - Constitutional Present: no acute distress, well nourished, well developed, obese - Routine HEENT Exam Head: Present: normocephalic Eye: Present: PERRL. Absent: conjunctival icterus, scleral injection ENT: Present: mucous membranes moist - Routine Neck Exam Present: supple - Routine Respiratory Exam Present: CTA bilaterally - Routine Cardiovascular Exam Present: RRR, S1, S2 - Routine Abdominal Exam Present: soft, tenderness (RUQ), non distended. Absent: normoactive bowel sounds (hyperactive) - Routine Extremities Exam Present: no edema, pulses intact, normal capillary refill - Routine Back/Spine/Pelvis Exam Back/Spine: Present: full ROM - Routine Skin Exam Present: intact, dry, warm - Routine Neurological Exam Present: alert, oriented X3, CN II-XII intact, moving all extremities, vision grossly intact, hearing grossly intact, normal speech. Absent: sensory deficit , motor deficit, altered mental status, facial asymmetry - Routine Psychiatric Exam Present: normal affect, normal thought process, cooperative Results - Imaging and Cardiology US Gall Bladder Additional comments: Date of Exam: 07/02/17 Type of Exam(s): US gall bladder Findings: Hepatic parenchyma is homogeneous without evidence for focal mass. The gallbladder wall thickness is at the upper limits of normal. No pericholecystic fluid, sonographic Garcia's sign or cholelithiasis. Both the intra and extrahepatic biliary system are of normal caliber with the common duct measuring 4 mm in dimension. Pancreas is not well seen due to shadowing bowel gas. The right kidney is present without collecting system dilatation. The right kidney measures 12.2 cm in length. Impression: Upper normal gallbladder wall thickness, otherwise negative exam. Assessment and Plan (1) Abdominal pain Current visit: Yes Status: Acute Assessment and Plan: IMPRESSION Pancreatitis Epigastric pain and RUQ tenderness Stroke 2013 HTN Hyperlipidemia CKD, stage III Asthma and allergies COPD (mild) Hypothyroid Renal carcinoma, resolved with nephrectomy PLAN Admit, observation status, under the hospitalist service for pancreatitis. Diet: NPO with sips/chips. IVF: NS at 100 mL/hr. Symptom control: Zofran and morphine PRN. Start Protonix 40 mg daily. COPD/asthma: Continue albuterol, Symbicort HTN: continue Norvasc, Labetalol. Hold Prinzide for now with slight elevation in creatinine. Hold statin for now b/c of RUQ tenderness. Advanced directives: is DPOA. Full code. [place] records were reviewed. Discussed with Dr. Oconnor. DVT Prophylaxis: SCD's GI Prophylaxis: Protonix Resuscitation Status: Full Code - Physician Narrative Physician: Franci Oconnor MD Narrative: Date: 07/02/17 Time: 1944 I have independently evaluated and examined this patient. I reviewed the chart, the patient's history, and the BUSINESS DEVELOPMENT CONSULTANT/PA's documented findings as above. We discussed and formulated the assessment and plan as above with additions as below: Mr. Gaitan reports abrupt onset epigastric pain yesterday while eating dinner. No N/V/reflux. GB US with upper ml GB wall thickness but no stones or pericholecystic fluid. Labs today notable only for minor elevation of lipase/ amylase and Cr 1.6. NAD, alert, abd soft, +BS, tender to palp epigastrium and RUQ without Murphies sign present. IVF, clear liquids-->ADAT. May have passed a gallstone yesterday given suggestion of GB wall thickening. If so sx resolving spontaneously. d/w Dr. Gatica, US reviewed by myself. Hospital Course Summary Disclaimer: The visit summary below is not to be considered part of the above Progress Note. Hospital Course: 07/02/17 Admit, observation status, under the hospitalist service for pancreatitis. Diet: NPO with sips/chips. IVF: NS at 100 mL/hr. Symptom control: Zofran and morphine PRN. Start Protonix 40 mg daily. COPD/asthma: Continue albuterol, Symbicort HTN: continue Norvasc, Labetalol. Hold Prinzide for now with slight elevation in creatinine. Hold statin for now b/c of RUQ tenderness. Advanced directives: is DPOA. Full code.
[2017-07-02] MEDS ORDERED: ONDANSETRON 4 MG/2 ML INJECTION IVP PRN (16:30)
[2017-07-02] MEDS ORDERED: MORPHINE SULFATE 2mg INJ IVP PRN (16:30)
[2017-07-02] MEDS ORDERED: --POM--Albuterol HFA 8 GM INHALER ORAL INH PRN (16:31)
[2017-07-02] MEDS ORDERED: SENNA + DOCUSATE TABLET PO PRN (16:36)
[2017-07-02] MEDS: PANTOPRAZOLE 40 MG INJECTION IVP SCH (16:52)
[2017-07-02] MEDS: NS 1,000 ML IV SCH (16:53)
[2017-07-02] MEDS: LABETALOL HCL 300 MG PO SCH (20:02)
[2017-07-02] MEDS ORDERED: DOXAZOSIN 4 MG PO SCH (21:00)
[2017-07-02] MEDS: FORMOTEROL ORAL INH SCH (21:08)
[2017-07-02] MEDS: BUDESONIDE ORAL INH SCH (21:08)
[2017-07-03] MEDS: NS 1,000 ML IV SCH (02:54)
[2017-07-03 07:30] VITALS: BP 148/72; PULSE 60; TEMP 96.5; O2SAT 99
[2017-07-03] MEDS: BUDESONIDE ORAL INH SCH (08:24)
[2017-07-03] MEDS: FORMOTEROL ORAL INH SCH (08:24)
[2017-07-03 08:27] VITALS: RESP 16
[2017-07-03] MEDS ORDERED: --POM--LEVOTHYROXINE 125 MCG TABLET PO SCH (09:00)
[2017-07-03] MEDS ORDERED: --POM--AMLODIPINE 10 MG TABLET PO SCH (09:00)
[2017-07-03] MEDS ORDERED: --POM--ASPIRIN 81 MG CHEWABLE TABLET PO SCH (09:00)
[2017-07-03] MEDS: PANTOPRAZOLE 40 MG INJECTION IVP SCH (09:07)
[2017-07-03] MEDS: LABETALOL HCL 300 MG PO SCH (09:11)
--- NOTE | 2017-07-03 10:11 | Discharge Summary ---
Discharge Information Date of admission: 07/02/17 14:16 Anticipated date of discharge: 07/03/17 Attending Physician: Franci Oconnor MD Primary care physician: Ramón Gatica MD - Discharge Diagnosis (1) Abdominal pain Status: Resolved Pancreatitis - resolved. Suspect passed gallstone. Epigastric pain and RUQ tenderness - resolved Stroke 2013 HTN Hyperlipidemia CKD, stage III Asthma and allergies COPD (mild) Hypothyroid Renal carcinoma, resolved with nephrectomy - Laboratory Labs: 07/03/17 04:17 07/03/17 04:17 - Radiology Radiology: US Gall Bladder Date of Exam: 07/02/17 Findings: Hepatic parenchyma is homogeneous without evidence for focal mass. The gallbladder wall thickness is at the upper limits of normal. No pericholecystic fluid, sonographic Garcia's sign or cholelithiasis. Both the intra and extrahepatic biliary system are of normal caliber with the common duct measuring 4 mm in dimension. Pancreas is not well seen due to shadowing bowel gas. The right kidney is present without collecting system dilatation. The right kidney measures 12.2 cm in length. Impression: Upper normal gallbladder wall thickness, otherwise negative exam. History of Present Illness HPI: Doroteo Gaitan is a 66 year old who developed sudden onset of sharp and stabbing epigastric pain at 1730 on 07/01/17 while eating supper (his notes that the pain started while eating a chilli dog - but he added that the chili was turkey chili). He has never experienced this type of pain before. He denied any n/v/d/c or bloody stools. His appetite has been stable. He denies any known exposures to contaminated food. He occasionally has reflux symptoms but not recently. He has not had fever, chills, or sweating. He denies any dizziness, lightheadedness or weakness. He's recently been exacerbating a flare up of his allergic and asthmatic symptoms with the strong winds. He has not had any recent alcohol intake. Mr. Gaitan saw Dr. Gatica on 07/02/17, and had labs, UA, and gall bladder ultrasound done at [facility] [place]. LFTs were normal (though patient stated that LFTs are often mildly elevated), lipase was high at 569. Creatinine , at 1.6, was a little above his baseline of 1.5. CBC was unremarkable. Troponin was negative. UA was also negative for UTI or hematuria. Ultrasound showed that the gall bladder wall was upper limits of normal, otherwise was negative. With his abdominal pain and pancreatitis, Mr. Gaitan was admitted to observation status under the hospitalist service. Objective Vital signs: Temperature 96.5 F L 07/03/17 07:30 Pulse Rate 60 07/03/17 07:30 Respiratory Rate 16 07/03/17 08:25 Blood Pressure 148/72 H 07/03/17 07:30 Pulse Oximetry 99 07/03/17 07:30 Height/Weight/BMI: Height 1.7 m Weight 97.3 kg Body Mass Index 33.5 - Constitutional Present: no acute distress, well nourished, well developed - Routine HEENT Exam Head: Present: normocephalic Eye: Present: PERRL. Absent: conjunctival icterus, scleral injection - Routine Respiratory Exam Present: CTA bilaterally - Routine Cardiovascular Exam Present: RRR, S1, S2 - Routine Abdominal Exam Present: soft, normoactive bowel sounds, tenderness (minimal RUQ tenderness), non distended - Routine Extremities Exam Present: no edema - Routine Musculoskeletal Exam Musculoskeletal: Present: no joint swelling - Routine Skin Exam Present: intact, dry, warm - Routine Neurological Exam Present: alert, oriented X3, vision grossly intact, hearing grossly intact, normal speech - Routine Psychiatric Exam Present: normal affect, normal thought process, cooperative Hospital Course This is a general summary of the patient's hospital course. For more details refer to the complete medical record. Hospital course: Mr. Gaitan was admitted on 07/02/17. Workup was done prior to arrival and lipase was elevated at 569. Gallbladder ultrasound showed a wall thickness that was upper limits of normal without stones or pericholecystic fluid. He was initially started on sips and chips diet, which was advanced to full liquids, and finally to a regular diet. He was started on Protonix and IV fluids, and morphine and Zofran were available on an as-needed basis, though his symptoms rapidly subsided, and these were not necessary. By the following morning, his abdominal pain has resolved and it was only minimally tender on palpation to the right upper quadrant. He was tolerating a regular diet. His lipase improved to a normal level of 123. Of note, creatinine decreased from 1.6-1.4. Given his sonographic findings and resolutions of symptoms, it was suspected that he passed a gallstone. He was able to be discharged home in stable condition. Recommend follow-up with Dr. Gatica in approximately 1 week. Time spent with patient: 25 - 35 minutes Resuscitation Status: Full Code Discharge Plan - Discharge Disposition Discharge Date: 07/03/17 Disposition: 01 Discharged Home, Self-Care *Condition: Stable Reason For Visit (Visit label in EMR): abdominal pain - Discharge Medications *Discharge Medications: Continue Albuterol HFA Inhaler [Ventolin Hfa 90 mcg/actuation] 2 puff ORAL INH O PRN PRN Reason: shortness of air Labetalol HCl 1 tab PO BID Levothyroxine Tab [Synthroid] 1 tab PO DAILY Doxazosin [Cardura] 1 tab PO HS Amlodipine Besylate [Norvasc] 10 mg PO DAILY Atorvastatin [Lipitor] 1 tab PO HS Lisinopril/Hctz 1012.5 [Prinzide 1012.5] 1 tab PO BID Budesonide/Formoterol Fumarate [Symbicort 160-4.5 Mcg Inhaler] 2 puff INH BID Vit C/E/Zn/Coppr/Lutein/Zeaxan [Preservision Areds 2 Softgel] 1 tab PO BID Aspirin [Joellen Chewable Aspirin] 1 tab PO DAILY TESTOSTERONE 100MG/ML (10 mL) IM - Discharge Packet/Instructions *Diet: Heart healthy, low-fat. *Activity: As tolerated. *Pain Management/Treatment: Tylenol if needed. *Wound Care: Not applicable. *Expected Signs/Symptoms: Abdominal pain should eventually resolve. *Notify Physician if: Abdominal pain returns, or if he started having nausea, vomiting or diarrhea, fever, chills, difficulty breathing or chest pain. *During Business Hours Contact: Dr. Gatica's office. *After Business Hours Contact: The on-call provider for Dr. Gatica. *Pending Lab/Results: No Pending Lab - Referrals/Follow Up *Referrals/Follow Up: Ramón Gatica MD [Primary Care Provider] - 1 Week - Patient Handouts - Dismissal Complete Discharge Instructions are:: Complete Physician Narrative - Narrative Physician: Lorenza Rubi MD Attestation Narrative: Date: 07/03/17 Time: 163 patient was discharged prior to my seeing him. Patient was discussed with Maria Isabel Perkins APRN. I have reviewed his chart and agree with her documentation and assessment and plan.
== END 2017-07-03 10:58 | disposition home or self-care (01) ==
LOC: MED
PROVIDERS: ADMIT Internal Medicine; ATTEND Internal Medicine